=== PATIENT | female | born 1975 | race American Indian/Alaskan Native ===

== ENCOUNTER 2021-11-20 21:11 | Emergency (ER) | payer SELFPAY ==
[2021-11-20] MEDS ORDERED: LACTATED RINGERS 1,000 ML IV ONE ×2 (21:31→21:37)
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
[2021-11-20] MEDS ORDERED: SODIUM CHLORIDE 0.9% 1000 ML 2,000 ML ONE (21:55)
[2021-11-20 22:43] LABS: Basophils % (Auto) 0.4 % (0.0-1.8); Eosinophils # (Auto) 0.2 K/mm3 (0.0-0.4); Eosinophils % (Auto) 2.3 % (0.0-4.3); Hematocrit 32.1 % (30.3-42.9); Hemoglobin 10.8 gm/dl (10.1-14.3); Lymphocytes # (Auto) 3.8 K/mm3 (1.2-5.4); Lymphocytes % (Auto) 45.6 % (13.4-35.0); Mean Corpuscular HGB Conc 34 % (30-34); Mean Corpuscular Volume 88 fl (79-97); Monocytes # (Auto) 0.6 K/mm3 (0.0-0.8); Monocytes % (Auto) 7.6 % (0.0-7.3); Platelet Count 246 K/mm3 (140-440); Red Blood Count 3.65 M/mm3 (3.65-5.03)
[2021-11-20 22:54] LABS: INR 0.91 (0.87-1.13)
[2021-11-20 22:55] LABS: Partial Thromboplastin Time 33.6 Sec. (24.2-36.6)
[2021-11-20 23:05] LABS: Alanine Aminotransferase 11 units/L (7-56); Albumin 3.9 g/dL (3.9-5); Blood Urea Nitrogen 8 mg/dL (7-17); Calcium 8.4 mg/dL (8.4-10.2); Hemolysis Index 4
[2021-11-20 23:06] LABS: BUN/Creatinine Ratio 13
[2021-11-20] MEDS ORDERED: METHYLERGONOVINE 0.2 MG TABLET PO ONE (23:46)
[2021-11-21 00:59] VITALS: BP 116/80
--- NOTE | 2021-11-21 01:27 | Ultrasound Report ---
US OB transvaginal INDICATION / CLINICAL INFORMATION: MISCARRAGE 7 WEEK; BLEEDING COMPARISON: None available. TECHNIQUE: Using transcutaneous probe, multiple grayscale color Doppler images of the uterus and ovar ies were captured and stored. FINDINGS: Uterus measures 13.5 x 6.3 x 8.6 cm. The endometrial cavity appears thickened measuring up to 1.5 cm with minimal hyperdense material present. Within the more superior and cervical canal there is a more focal region of possible fluid. Left and right ovary are not clearly identified. IMPRESSION: 1. No specific imaging features of retained products of conception. Surveillance of beta hCG is recom mended. Signer Name: Jerry Arzola II, MD Signed: 11/21/2021 1:23 AM Workstation Name: [id number]
== END 2021-11-21 04:06 | disposition home or self-care (01) ==
LOC: ED 21:11
DX: O03.9 Complete or unspecified spontaneous abortion without complication (principal); Z3A.01 Less than 8 weeks gestation of pregnancy; R79.1 Abnormal coagulation profile
CPT/HCPCS: 36415; 76817; 80053; 83735; 84702; 85025; 85384; 85610; 85730; 86850; 86900; 86901; 88305; 96360; 99284; J7030; J7120